=== PATIENT | female | born 1965 | race African-American/Black ===

== ENCOUNTER 2019-04-25 18:19 | Emergency (ER) | payer OTHER, BC ==
[2019-04-25] MEDS ORDERED: KETOROLAC TROMETHAMINE 60 MG/2 ML SDV IM ONE (19:12)
[2019-04-25] MEDS ORDERED: LIDOCAINE 5% (700 MG) TRANSDERMAL ADH..PATCH TP ONE (19:12)
--- NOTE | 2019-04-25 19:14 | ER Document Report ---
HPI - HPI Patient complains to provider of: low back/groin pain R side Time Seen by Provider: 04/25/19 19:12 Pain Level: 4 Context: Pleasant overall healthy 49-year-old female sent to the emergency department with chief complaint of acute right groin pain and right lower back pain. She says it happened on Thursday after she was getting out of her vehicle to go to an event with the vet [facility] and [facility]mic speech. She said she was in her usual state of health and after the event ended and she went to her hotel she developed severe stabbing pain causing her to alter her gait. She denies any fevers or IV drug use, urinary retention, bowel incontinence, saddle paresthesia, numbness or tingling in any of her extremities, paralysis in one or more extremities, no other complaints. - REPRODUCTIVE Reproductive: DENIES: : Past Medical History - Social History Smoking Status: Never Smoker Family History: None Vertical Provider Document - CONSTITUTIONAL General Appearance: Mild Distress Notes: PHYSICAL EXAMINATION: Reviewed vital signs and charting by RN GENERAL: Alert, interacts well. Mild distress. HEAD: Normocephalic, atraumatic. EYES: Pupils equal, round, and reactive to light. Extraocular movements intact. ENT: Oral mucosa moist, tongue midline. NECK: Full range of motion. Supple. Trachea midline. EXTREMITIES: Moves all 4 extremities spontaneously. No edema, No cyanosis. Pain upon standing, acute tenderness to palpation in the right SI joint with induced radiculopathy around her anterior thigh, patient can ambulate but has a limp and is leaning over PSYCH: Normal affect, normal mood. SKIN: Warm, dry, normal turgor. No rashes or lesions noted. - INFECTION CONTROL TRAVEL OUTSIDE OF THE [place] IN LAST 30 DAYS: No Course - Re-evaluation Re-evalutation: 04/25/19 19:18 Presentation of a well appearing patient complaining of acute on chronic back pain. No rapid progression of symptoms, systemic symptoms including fevers, chills, weight loss, history of recent bacterial infection, bilateral symptoms, numbness, weakness, difficulty walking, urinary retention or bowel incontinence, personal history of cancer, immunosuppression, diabetes, known AAA, or history of IV drug use. Exam is without point tenderness over vertebral bodies, pulsatile abdominal mass, and patient has symmetric and intact lower extremity strength, sensation, and reflexes without clonus. 2+ symmetric medial malleolar and dorsalis pedis pulses Based on history and physical, I have a very low suspicion of a concerning etiology of pain including epidural compression syndrome, spinal infection, transverse myelitis, malignancy, abdominal aortic aneurysm, renal colic, acute lower extremity claudication, neurogenic claudication, ankylosing spondylitis, or other intra-abdominal process. Due to absence of concerning risk factors in history and physical as well as absence of rapidly progressive, severe, or bilateral symptoms, will defer imaging at this point. - Vital Signs Vital signs: Temp Pulse Resp BP Pulse Ox 98.0 F 76 18 169/90 H 99 04/25/19 18:26 04/25/19 18:26 04/25/19 18:26 04/25/19 18:26 04/25/19 18:26 Discharge - Discharge Clinical Impression: Low back pain Qualifiers: Chronicity: acute Back pain laterality: right Sciatica presence: with sciatica Sciatica laterality: sciatica of right side Qualified Code(s): M54.41 - Lumbago with sciatica, right side Condition: Good Disposition: HOME, SELF-CARE Additional Instructions: You have been seen in the Emergency Department (ED) today for back pain. Your workup and exam have not shown any acute abnormalities and you are likely suffering from muscle strain or possible problems with your discs, but there is no treatment that will fix your symptoms at this time. Please take ibuprofen 600 mg every 6 hours for the next 3 to 4 days on a full belly with food or milk. You can also take Tylenol 1000 mg every 6 hours as needed for pain. I have also written a prescription for lidocaine patches that you can place on the area of worst pain for 8 to 12 hours at a time. Apply heat to the area as often as you are able. Continue to keep active and avoid prolonged periods of bed rest. Please follow up with your doctor as soon as possible regarding today's ED visit and your back pain. Return to the ED for worsening back pain, fever, weakness or numbness of either leg, or if you develop either (1) an inability to urinate or have bowel movements, or (2) loss of your ability to control your bathroom functions (if you start having "accidents"), or if you develop other new symptoms that concern you.concern you.
[2019-04-25 19:45] VITALS: BP 152/86
== END 2019-04-25 19:39 | disposition home or self-care (01) ==
LOC: ER 18:19
DX: M54.41 Lumbago with sciatica, right side (principal); R10.30 Lower abdominal pain, unspecified
CPT/HCPCS: 99283; 96372; J1885

== ENCOUNTER 2019-10-20 10:17 | Emergency (ER) | payer OTHER, BC ==
--- NOTE | 2019-10-20 10:42 | ER Document Report ---
ED Medical Screen (RME) - General Chief Complaint: Chest Pain Stated Complaint: CHEST PAIN,NAUSEA,NECK PAIN Time Seen by Provider: 10/20/19 10:40 Primary Care Provider: JASIEL,GABBY [Primary Care Provider] - Follow up as needed Notes: Patient is a 53-year-old female presents to the emergency department for left- sided chest pain. Patient voices this chest pain started approximately 24 hours ago. States it is intermittent in nature. Patient voices she has had muscular pain in the past but this "feels different." States the pain is somewhat increased on palpation but does not change with movement of her shoulder. States sometimes she feels as though it is "pushing through to my shoulder blade." Patient voices she called her primary care doctor who told her to come to the emergency department for blood work. GENERAL: Alert, interacts well. No acute distress. LUNGS: Clear to auscultation bilaterally, no wheezes, rales, or rhonchi. No respiratory distress. HEART: Regular rate and rhythm. No murmur I have greeted and performed a rapid initial assessment of this patient. A comprehensive ED assessment and evaluation of the patient, analysis of test results and completion of the medical decision making process will be conducted by additional ED providers. I have specifically instructed the patient or family members with the patient to immediately return to any nursing staff should anything change in the patient's condition or with their chief complaint. This medical record was dictated with voice recognizing software. There may be grammatical, syntax errors that are unintended. TRAVEL OUTSIDE OF THE [place] IN LAST 30 DAYS: No - Related Data Allergies/Adverse Reactions: acetaminophen [From Percocet] Allergy (Verified 10/20/19 10:34) cyclobenzaprine [From Flexeril] Allergy (Verified 10/20/19 10:34) iodine Allergy (Verified 10/20/19 10:34) oxycodone [From Percocet] Allergy (Verified 10/20/19 10:34) strawberry Allergy (Verified 10/20/19 10:34) Past Medical History Renal/ Medical History: Denies: Hx Peritoneal Dialysis Doctor's Discharge - Discharge Referrals: [facility] [Primary Care Provider] - Follow up as needed
[2019-10-20 11:30] LABS: ABSOLUTE BASOPHILS # (AUTO) 0.1 10^3/uL (0.0-0.2); ABSOLUTE EOSINOPHILS # (AUTO) 0.1 10^3/uL (0.0-0.6); ABSOLUTE LYMPHOCYTES (AUTO) 2.4 10^3/uL (0.5-4.7); ABSOLUTE MONOCYTES (AUTO) 0.5 10^3/uL (0.1-1.4); ABSOLUTE NEUT (AUTO) 3.3 10^3/uL (1.7-8.2); BASOPHILS % (AUTO) 1.1 % (0-2); EOSINOPHILS % (AUTO) 2.3 % (0-6); HEMATOCRIT 40.1 % (36.0-47.0); HEMOGLOBIN 13.8 g/dL (12.0-15.5); LYMPHOCYTES % (AUTO) 37.8 % (13-45); MEAN CORPUSCULAR HEMOGLOBIN 30.5 pg (27.0-33.4); MEAN CORPUSCULAR HGB CONC 34.4 g/dL (32.0-36.0); MEAN CORPUSCULAR VOLUME 89 fl (80-97); MONOCYTES % (AUTO) 7.1 % (3-13); PLATELET COUNT 259 10^3/uL (150-450); RED BLOOD COUNT 4.51 10^6/uL (3.72-5.28); RED CELL DISTRIBUTION WIDTH 13.2 % (11.5-14.0); SEGMENTED NEUTROPHILS % (AUTO) 51.7 % (42-78); TOTAL CELLS COUNTED % (AUTO) 100 %; WHITE BLOOD COUNT 6.5 10^3/uL (4.0-10.5)
--- NOTE | 2019-10-20 11:38 | ER Document Report ---
ED General - General Chief Complaint: Chest Pain > 30 Stated Complaint: CHEST PAIN,NAUSEA,NECK PAIN Time Seen by Provider: 10/20/19 10:40 Primary Care Provider: GABBY WEATHERS [NO LOCAL MD] - Follow up as needed TRAVEL OUTSIDE OF THE [place] IN LAST 30 DAYS: No - Related Data Allergies/Adverse Reactions: acetaminophen [From Percocet] Allergy (Verified 10/20/19 10:34) cyclobenzaprine [From Flexeril] Allergy (Verified 10/20/19 10:34) iodine Allergy (Verified 10/20/19 10:34) oxycodone [From Percocet] Allergy (Verified 10/20/19 10:34) strawberry Allergy (Verified 10/20/19 10:34) Home Medications: [facility] Past Medical History - Social History Smoking Status: Never Smoker Chew tobacco use (# tins/day): No Drug Abuse: None Family History: None Patient has suicidal ideation: No Patient has homicidal ideation: No Renal/ Medical History: Denies: Hx Peritoneal Dialysis Physical Exam - Vital signs Vitals: Temp Pulse Resp BP Pulse Ox 97.9 F 68 20 161/91 H 100 10/20/19 10:42 10/20/19 10:42 10/20/19 10:42 10/20/19 10:42 10/20/19 10:42 - Notes Notes: Patient presents emergency department with chest pain that started about 4:00 yesterday pain is located left anterior chest goes up into the left scapula left posterior neck and left shoulder. He says it feels like a muscle spasm. Pain is increasing decreasing severity but never really goes away. She had some nausea with this but no vomiting. When the spasm get really bad she feels like it takes her breath away but does not really feel short of breath. She has had no diaphoresis no fevers or cough trauma falls or heavy lifting. He has had muscle spasms in the past but these over the right chest and really she had over the left chest. Pain seems to get worse with moving her arm or sitting but does not really change with activity. Does not change when she takes a deep breath Past medical history is negative for diabetes hypertension or elevated cholesterol. Social history she does not smoke or drink allergies reviewed she does not really allergic to Flexeril and just has prolonged sedation family history is negative for heart disease as an early age. She denies any control pills Review of systems pertinent positives and negatives in HPI otherwise all the systems were reviewed and acutely negative PHYSICIAN EXAM -vital signs are noted triage note and note from triage reviewed GENERAL: Well-appearing, well-nourished and in _mild distress due to pain HEAD: Atraumatic, normocephalic. EYES: Pupils equal round and reactive to light, extraocular movements intact, sclera anicteric, conjunctiva are normal. ENT: nares patent, oropharynx clear without exudates. Moist mucous membranes. NECK: supple without lymphadenopathy there is no tenderness in the midline. She has significant tenderness in the left trapezius muscle extending into the area of the scapula LUNGS: Breath sounds clear to auscultation bilaterally and equal. No wheezes rales or rhonchi. She has significant tenderness over the left anterior chest just below the clavicle that reproduces her pain. No pain over the right chest or the left lateral chest wall. There are no lesions on the chest. HEART: Regular rate and rhythm without murmurs ABDOMEN: Soft, nontender, normoactive bowel sounds. EXTREMITIES: No deformity, no edema. No palpable cords the left upper extremity clavicle and AC joint are nontender. He has good range of motion of the shoulder but forced AB and adduction increases the pain she has good neurovascular status in the left upper extremity NEUROLOGICAL: No focal neurological deficits. Moves all extremities spontaneously and on command. PSYCH: Normal mood, normal affect. SKIN: Warm, Dry, normal turgor, no rashes or lesions noted. BACK-nontender in the midline there is some mild discomfort when she sits up and turn from side to side when she raises her arms Course - Re-evaluation Re-evalutation: 10/20/19 15:20 ED patient is remained stable she is been on a senior chemist she was treated with ketorolac and Ativan with sniffing improvement of her symptoms she still has reproducible pain markedly improved from previous. Medical decision making patient presents with chest pain is been going on for about 16 hours. Reproducible worse with movement. She has no risk factors for coronary artery disease. She is feeling better and at this point is to be discharged home I see life threatening causes of her chest pain. Also see no indication for repeat troponin Dictation was done using voice recognition software. There may be some grammatical errors which are unintentional - Vital Signs Vital signs: Temp Pulse Resp BP Pulse Ox 97.8 F 68 16 142/93 H 100 10/20/19 14:34 10/20/19 10:42 10/20/19 14:01 10/20/19 14:00 10/20/19 14:01 - Laboratory Result Diagrams: 10/20/19 11:15 10/20/19 11:15 - Diagnostic Test Radiology reviewed: Reports reviewed - EKG Interpretation by Me Additional EKG results interpreted by me: 10/20/19 15:20 EKG read by me shows a normal sinus rhythm at a rate of 62 there is some low voltage no nonspecific ST wave changes no old EKGs for comparison Discharge - Discharge Clinical Impression: Chest wall pain, Elevated blood pressure reading Disposition: HOME, SELF-CARE Instructions: Chest Wall Pain ([facility]), High Blood Pressure ([facility]) Additional Instructions: Return if you get worse or unable to follow-up with your family doctor Please review the discharge instructions. They will tell you about your illness/injury, the normal course and symptoms you need to return to the emergency department for Follow-up with your family doctor in 2 to 3 days if not better otherwise in 2 weeks to recheck your blood pressure Use heat to your chest 3 times a day. Take 1 Aleve twice a day for 3 days Your blood pressure was elevated today needs to be rechecked again in 1 to 2 weeks to determine if need to be on medications untreated hypertension can cause heart attack stroke and kidney failure Prescriptions: Metaxalone [Skelaxin 800 mg Tablet] 800 mg PO ASDIR PRN #20 tablet PRN Reason: Forms: Elevated Blood Pressure [facility]errals: [facility] [NO LOCAL MD] - Follow up as needed
[2019-10-20 11:49] LABS: ALBUMIN 4.4 g/dL (3.5-5.0); ALKALINE PHOSPHATASE 79 U/L (38-126); ANION GAP 8 (5-19); ASPARTATE AMINO TRANSFERASE 26 U/L (14-36); BILIRUBIN,DIRECT 0.1 mg/dL (0.0-0.4); BILIRUBIN,TOTAL 0.7 mg/dL (0.2-1.3); BLOOD UREA NITROGEN 16 mg/dL (7-20); CALCIUM 9.6 mg/dL (8.4-10.2); CARBON DIOXIDE 27 mmol/L (22-30); CHLORIDE 104 mmol/L (98-107); CREATINE KINASE 80 U/L (30-135); GLUCOSE 77 mg/dL (75-110); POTASSIUM 4.3 mmol/L (3.6-5.0); TOTAL PROTEIN 7.5 g/dL (6.3-8.2)
--- NOTE | 2019-10-20 11:50 | RADIOLOGY REPORT (SQ) ---
EXAM DESCRIPTION: CHEST 2 VIEWS COMPLETED DATE/TIME: 10/20/2019 11:39 am REASON FOR STUDY: CP COMPARISON: None. EXAM PARAMETERS: NUMBER OF VIEWS: two views TECHNIQUE: Digital Frontal and Lateral radiographic views of the chest acquired. RADIATION DOSE: NA LIMITATIONS: none FINDINGS: LUNGS AND PLEURA: No opacities, masses or pneumothorax. No pleural effusion. MEDIASTINUM AND HILAR STRUCTURES: No masses or contour abnormalities. HEART AND VASCULAR STRUCTURES: Heart normal size. No evidence for failure. BONES: No acute findings. HARDWARE: None in the chest. OTHER: No other significant finding. IMPRESSION: NO ACUTE RADIOGRAPHIC FINDING IN THE CHEST. TECHNICAL DOCUMENTATION: JOB ID: [id number] [employer]- All Rights Reserved Reading location - IP/workstation name: [email or web address]
[2019-10-20] MEDS ORDERED: LORAZEPAM INJ 2 MG/1 ML VIAL IV ONE (12:27)
[2019-10-20] MEDS ORDERED: KETOROLAC TROMETHAMINE INJ/PF 30 MG/1 ML SDV IV ONE (12:27)
[2019-10-20 14:14] VITALS: BP 142/93
--- NOTE | 2019-10-22 12:36 | EKG REPORT ---
SEVERITY:- OTHERWISE NORMAL ECG - SINUS RHYTHM BORDERLINE LEFT AXIS DEVIATION : Confirmed by: Wendy Danielson 22-Oct-2019 12:35:18
== END 2019-10-20 14:45 | disposition home or self-care (01) ==
LOC: ER 10:17
DX: R07.89 Other chest pain (principal); R03.0 Elevated blood-pressure reading, without diagnosis of hypertension; R11.0 Nausea; M54.2 Cervicalgia
CPT/HCPCS: 93005; 99284; 96374; 96375; 36415; 82550; 85025; 80053; 84484; 71046; 93010; J1885; J2060

== ENCOUNTER 2020-04-09 13:31 | Emergency (ER) | payer OTHER, BC ==
[2020-04-09] MEDS ORDERED: ASPIRIN 81 MG TABLET, CHEWABLE PO ONE (14:20)
[2020-04-09] MEDS ORDERED: NORMAL SALINE 1000 ML 1,000 ML IV ONE (14:22)
[2020-04-09] MEDS ORDERED: ONDANSETRON HCL INJ/PF 4 MG/2 ML SDV IV ONE (14:24)
[2020-04-09] MEDS ORDERED: IPRATROPIUM/ALBUTEROL 0.5-2.5 MG/3 ML AMPUL NEB ONE (14:24)
--- NOTE | 2020-04-09 14:29 | ER Document Report ---
ED Respiratory Problem - General Chief Complaint: Shortness Of Breath Stated Complaint: SHORTNESS OF BREATH,POSSIBLE EXPOSURE Time Seen by Provider: 04/09/20 13:49 Primary Care Provider: JASIEL,GABBY [Primary Care Provider] - Follow up tomorrow Mode of Arrival: Ambulatory Information source: Patient Notes: Patient presents with a 6-day history of shortness of breath chest pain headache and cough. Patient reports a recent exposure to COVID virus at work. Patient states that she was seen 4 days ago at [facility] [address] and was diagnosed with pneumonia and placed on Levaquin. Patient states she was also placed on steroids at that time. Patient reports nausea and diarrhea without any vomiting. TRAVEL OUTSIDE OF THE [place] IN LAST 30 DAYS: No - HPI Patient complains to provider of: Asthma, Chest pain, Cough, Short of breath Onset: Other - 6 days Duration: Continuous Quality of pain: Achy Pain Level: 3 Context: Hx asthma. denies: Smoker Chest pain/discomfort: Worse with deep breaths Cough: Productive Sputum amount: Small Sputum color: Green, Yellow At home treatment: Bronchodilators Associated symptoms: Chest pain/discomfort, Congestion, Cough, Short of breath. denies: Fever Similar symptoms previously: No Recently seen / treated by doctor: Yes - Related Data Allergies/Adverse Reactions: acetaminophen [From Percocet] Allergy (Verified 10/20/19 10:34) cyclobenzaprine [From Flexeril] Allergy (Verified 10/20/19 10:34) iodine Allergy (Verified 10/20/19 10:34) oxycodone [From Percocet] Allergy (Verified 10/20/19 10:34) strawberry Allergy (Verified 10/20/19 10:34) Past Medical History - General Information source: Patient - Social History Smoking Status: Never Smoker Frequency of alcohol use: None Drug Abuse: None Occupation: [employer] Lives with: Family Family History: None Patient has homicidal ideation: No Pulmonary Medical History: Reports: Hx Asthma Neurological Medical History: Reports: Hx Migraine Renal/ Medical History: Denies: Hx Peritoneal Dialysis Malignancy Medical History: Reports: Other - Uterine cancer GI Medical History: Reports: Hx Gastroesophageal Reflux Disease Psychiatric Medical History: Reports: Hx Anxiety, Hx Post Traumatic Stress Disorder Past Surgical History: Reports: Hx Hysterectomy, Hx Orthopedic Surgery - spinal fusion, shoulder Review of Systems - Review of Systems Constitutional: Recent illness - Recently diagnosed with pneumonia. denies: Fever EENT: Nose congestion Cardiovascular: Chest pain Respiratory: Cough, Short of breath Gastrointestinal: Diarrhea, Nausea. denies: Abdominal pain, Vomiting Genitourinary: No symptoms reported Female Genitourinary: No symptoms reported Musculoskeletal: No symptoms reported. denies: Back pain Skin: No symptoms reported Hematologic/Lymphatic: No symptoms reported Neurological/Psychological: No symptoms reported Physical Exam - Vital signs Vitals: Temp 97.7 F 04/09/20 13:35 - General General appearance: Appears well, Alert In distress: None - HEENT Head: Normocephalic, Atraumatic Eyes: Normal Conjunctiva: Normal Nasal: Normal Mouth/Lips: Normal Mucous membranes: Normal Pharynx: Erythema. No: Exudate, Tonsillar hypertrophy Neck: Normal, Supple. No: Lymphadenopathy - Respiratory Respiratory status: No respiratory distress Chest status: Tender, Pain with cough, Pain with deep breathing Breath sounds: Nonproductive cough. No: Rales, Rhonchi, Stridor, Wheezing Chest palpation: Tender - Cardiovascular Rhythm: Regular Heart sounds: S1 appreciated, S2 appreciated Murmur: No - Abdominal Inspection: Normal Distension: No distension Bowel sounds: Normal Tenderness: Nontender Organomegaly: No organomegaly - Back Back: Normal, Nontender - Extremities General upper extremity: Normal inspection, Normal strength General lower extremity: Normal inspection, Normal strength - Neurological Neuro grossly intact: Yes Cognition: Normal Eamon Coma Scale Eye Opening: Spontaneous Leisenring Coma Scale Verbal: Oriented Le[place] Coma Scale Motor: Obeys Commands Leisenring Coma Scale Total: 15 - Psychological Associated symptoms: Normal affect, Normal mood - Skin Skin Temperature: Warm Skin Moisture: Dry Skin Color: Normal Course - Re-evaluation Re-evalutation: 04/09/20 16:14 Patient's respirations even unlabored, patient nontoxic in appearance. Patient does have chest wall pain reproducible with palpation and coughing. No pneumonia noted on x-ray. Patient does have a mild leukocytosis although has recently been on steroids and suspect that it is likely attributed to this. Will send COVID test for patient at this time. The patient was evaluated during the global Covid 19 pandemic, and that diagnosis was suspected/considered upon their initial presentation. Their evaluation, treatment and testing was consistent with current guidelines for patients who present with complaints or symptoms that may be related to Covid 19. Patient presents with upper respiratory symptoms worrisome for possible Covid 19. Patient does not have emergency worrying symptoms such as difficulty breathing, shortness of breath, chest pain, pressure, confusion or cyanosis. Patient appears suitable for discharge as vital signs are stable and patient is nontoxic in appearance. Good return precautions have been discussed with patient, patient verbalized understanding and is agreeable with discharge plan of care at this time. Presentation of chest pain in an otherwise well appearing patient. Low clinical suspicion for ACS given clinical history, exam, EKG without ST elevations or depressions, and negative initial troponin. HEART score less than or equal to 3. PE also seems unlikely given clinical history, absence of tachycardia or and no elevation in d-dimer test. CXR without evidence of pneumothorax or pneumonia. No widened mediastinum. Chest pain in a patient without evidence of cardiac or other serious etiology on workup today. I discussed with patient that, based on their age, risk factors and emergency department testing today, the likelihood that their symptoms are related to a heart attack is very low. The patient demonstrates decision making capacity and has verbalized an understanding of these risks to me. Based on this, the patient has chosen to follow-up as an outpatient. Usual chest pain return precautions reviewed. The patient states understanding and agreement with this plan. - Vital Signs Vital signs: Temp Pulse Resp BP Pulse Ox 98.4 F 65 16 145/98 H 100 04/09/20 17:41 04/09/20 17:41 04/09/20 17:41 04/09/20 17:41 04/09/20 17:41 - Laboratory Result Diagrams: 04/09/20 14:47 04/09/20 14:47 Laboratory results interpreted by me: 04/09/20 14:47 WBC 14.5 H Lymph % (Auto) 7.3 L Absolute Neuts (auto) 12.9 H Seg Neutrophils % 89.1 H Labs- Entire Visit 04/09/20 04/09/20 04/09/20 14:47 14:47 14:47 WBC 14.5 H RBC 4.63 Hgb 14.2 Hct 41.2 MCV 89 MCH 30.6 MCHC 34.3 RDW 13.6 Plt Count 271 Lymph % (Auto) 7.3 L Amador % (Auto) 3.1 Eos % (Auto) 0.0 Baso % (Auto) 0.5 Absolute Neuts (auto) 12.9 H Absolute Lymphs (auto) 1.1 Absolute Monos (auto) 0.5 Absolute Eos (auto) 0.0 Absolute Basos (auto) 0.1 Seg Neutrophils % 89.1 H D-Dimer Sodium 138.3 Potassium 4.0 Chloride 101 Carbon Dioxide 27 Anion Gap 10 BUN 19 Creatinine 0.67 Est GFR ( Amer) > 60 Est GFR (MDRD) Non-Af > 60 Glucose 97 Calcium 9.9 Magnesium 2.2 Total Bilirubin 0.4 Direct Bilirubin 0.0 Neonat Total Bilirubin Not Reportable Neonat Direct Bilirubin Not Reportable Neonat Indirect Bili Not Reportable AST 28 ALT 22 Alkaline Phosphatase 71 Troponin I < 0.012 Total Protein 7.9 Albumin 4.8 04/09/20 14:47 WBC RBC Hgb Hct MCV MCH MCHC RDW Plt Count Lymph % (Auto) Amador % (Auto) Eos % (Auto) Baso % (Auto) Absolute Neuts (auto) Absolute Lymphs (auto) Absolute Monos (auto) Absolute Eos (auto) Absolute Basos (auto) Seg Neutrophils % D-Dimer < 0.27 Sodium Potassium Chloride Carbon Dioxide Anion Gap BUN Creatinine Est GFR ( Amer) Est GFR (MDRD) Non-Af Glucose Calcium Magnesium Total Bilirubin Direct Bilirubin Neonat Total Bilirubin Neonat Direct Bilirubin Neonat Indirect Bili AST ALT Alkaline Phosphatase Troponin I Total Protein Albumin - Diagnostic Test Radiology reviewed: Reports reviewed Discharge - Discharge Clinical Impression: Cough, COVID-19 screening Chest pain Qualifiers: Chest pain type: unspecified Qualified Code(s): R07.9 - Chest pain, unspecified Condition: Stable Disposition: HOME, SELF-CARE Instructions: Chest Wall Pain ([facility]), Pleurisy ([facility]) Additional Instructions: Return immediately for any new or worsening symptoms Followup with your primary care provider, call tomorrow to make a followup appointment Finish your antibiotics and steroids that you were previously prescribed. As a person under investigation for Covid 19, the [place] department of Health and Human Services, division of public health advises you to adhere to the following guidance until your test results are reported to you. If your test result is positive, you will receive additional information from your provider and your local health department at that time. Remain at home until you are cleared by the health provider or public health authorities. Keep a log of visitors to your home, notify any visitors to your home of your isolation status. If you plan to move to a new address or leave the county, notify the local health department in your County. Call your doctor or seek care if you have an urgent medical need. Before seeking medical care, call ahead to get instructions from the provider before arriving at the medical office clinic or hospital. Notify them that you are being tested for the virus that causes Covid 19 so that arrangements can be made, as necessary, to prevent transmission to others in the healthcare setting. Next, notify the local health department in your county. If a medical emergency arises and you need to call 911, inform the first responders that you are being tested for the virus that causes Covid 19. Next, notify the local health department in your county. Forms: Return to Work Referrals: [facility] [Primary [facility] Provider] - Follow up tomorrow
[2020-04-09 14:59] LABS: ABSOLUTE BASOPHILS # (AUTO) 0.1 10^3/uL (0.0-0.2); ABSOLUTE LYMPHOCYTES (AUTO) 1.1 10^3/uL (0.5-4.7); ABSOLUTE MONOCYTES (AUTO) 0.5 10^3/uL (0.1-1.4); ABSOLUTE NEUT (AUTO) 12.9 10^3/uL (1.7-8.2); BASOPHILS % (AUTO) 0.5 % (0-2); HEMATOCRIT 41.2 % (36.0-47.0); HEMOGLOBIN 14.2 g/dL (12.0-15.5); LYMPHOCYTES % (AUTO) 7.3 % (13-45); MEAN CORPUSCULAR HEMOGLOBIN 30.6 pg (27.0-33.4); MEAN CORPUSCULAR HGB CONC 34.3 g/dL (32.0-36.0); MEAN CORPUSCULAR VOLUME 89 fl (80-97); MONOCYTES % (AUTO) 3.1 % (3-13); PLATELET COUNT 271 10^3/uL (150-450); RED BLOOD COUNT 4.63 10^6/uL (3.72-5.28); RED CELL DISTRIBUTION WIDTH 13.6 % (11.5-14.0); SEGMENTED NEUTROPHILS % (AUTO) 89.1 % (42-78); TOTAL CELLS COUNTED % (AUTO) 100 %; WHITE BLOOD COUNT 14.5 10^3/uL (4.0-10.5)
[2020-04-09 15:15] LABS: ALBUMIN 4.8 g/dL (3.5-5.0); ALKALINE PHOSPHATASE 71 U/L (38-126); ANION GAP 10 (5-19); ASPARTATE AMINO TRANSFERASE 28 U/L (14-36); BILIRUBIN,TOTAL 0.4 mg/dL (0.2-1.3); BLOOD UREA NITROGEN 19 mg/dL (7-20); CALCIUM 9.9 mg/dL (8.4-10.2); CARBON DIOXIDE 27 mmol/L (22-30); CHLORIDE 101 mmol/L (98-107); GLUCOSE 97 mg/dL (75-110); TOTAL PROTEIN 7.9 g/dL (6.3-8.2)
--- NOTE | 2020-04-09 15:16 | RADIOLOGY REPORT (SQ) ---
EXAM DESCRIPTION: CHEST SINGLE VIEW IMAGES COMPLETED DATE/TIME: 04/09/2020 3:03 pm REASON FOR STUDY: cough, sob COMPARISON: 10/20/2019 EXAM PARAMETERS: NUMBER OF VIEWS: One view. TECHNIQUE: Single frontal radiographic view of the chest acquired. RADIATION DOSE: NA LIMITATIONS: None. FINDINGS: LUNGS AND PLEURA: No opacities, masses or pneumothorax. No pleural effusion. MEDIASTINUM AND HILAR STRUCTURES: No masses. Contour normal. HEART AND VASCULAR STRUCTURES: Heart normal in size. Normal vasculature. BONES: No acute findings. HARDWARE: None in the chest. OTHER: No other significant finding. IMPRESSION: NO ACUTE RADIOGRAPHIC FINDING IN THE CHEST. TECHNICAL DOCUMENTATION: JOB ID: [id number] 2010 [employer]- All Rights Reserved Reading location - IP/workstation name: [email or web address]
[2020-04-09 17:42] VITALS: BP 145/98
--- NOTE | 2020-04-09 23:42 | EKG REPORT ---
SEVERITY:- NORMAL ECG - SINUS RHYTHM : Confirmed by: Katherine Tam MD 09-Apr-2020 23:41:39
== END 2020-04-09 17:42 | disposition home or self-care (01) ==
LOC: ER 13:31
DX: Z20.828 Contact with and (suspected) exposure to other viral communicable diseases (principal); R07.9 Chest pain, unspecified; R05 Cough; R06.02 Shortness of breath; R11.0 Nausea; R19.7 Diarrhea, unspecified; Z79.01 Long term (current) use of anticoagulants; J45.909 Unspecified asthma, uncomplicated; Z88.8 Allergy status to other drugs, medicaments and biological substances
CPT/HCPCS: 93005; 94640; 99284; 96361; 96374; 36415; 87040; 83735; 85025; 87635; 80053; 84484; 85379; 71045; 93010; J2405; J7030; J7620